=== PATIENT | male | born 1965 | race African-American/Black ===

== ENCOUNTER 2024-07-21 08:02 | Emergency (ER) | payer OTHER, SELFPAY ==
[2024-07-21 08:01] VITALS: BP 141/97; PULSE 99; RESP 22; TEMP 37; O2SAT 100
[2024-07-21 08:30] VITALS: BP 124/95; PULSE 95; RESP 16; O2SAT 100
[2024-07-21] MEDS: MORPHINE SULFATE (*CRX) 4 MG/ML INJ IV PUSH (08:43)
--- OUTSIDE RECORDS SUMMARY | 2024-07-21 08:46 | XMS_ITS | Clinical Summary ---
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 05/25/2024 11:47 AM ICING COATER us Stu Pringle MD PhD LAB BLOOD ORDERABLES Final Result ANGELA [address] [facility] [place] [address] * (ABNORMAL) CBC with auto differential (05/25/2024 11:47 AM ICING COATER) WBC 7.7 3.8 - 9.9 K/cumm Comment:Testing performed by : [address] [address] Hgb 12.5(L) 13.0 - 17.5 g/dL ANGELA Comment:Testing performed by : [address] [address] Hct 36.2(L) 38.9 - 50.3 % ANGELA Comment:Testing performed by : [address] [address] Plt 259 150 - 400 K/cumm ANGELA Comment:Testing performed by : [address] [address] MPV 9.2 9.1 - 12.3 fL ANGELA Comment:Testing performed by : [address], [address] RBC 4.37 4.30 - 5.80 M/cumm ANGELA Comment:Testing performed by : [address], [address] MCV 82.8 81.3 - 96.4 fL ANGELA Comment:Testing performed by : [address] [address] MCH 28.6 27.1 - 33.3 pg ANGELA Comment:Testing performed by : [address] [address] MCHC 34.5 32.3 - 35.7 g/dL ANGELA Comment:Testing performed by : [address], [address] RDW CV 14.4 11.1 - 14.9 % ANGELA Comment:Testing performed by : [address], [address] RDW SD 43.6 35.7 - 48.1 fL ANGELA Comment:Testing performed by : [address] [address] NRBC abs 0.00 0.00 - 0.01 K/cumm ANGELA Comment:Testing performed by : [address] [address] Blood 05/25/2024 11:4 7 AM ICING COATER 05/25/2024 11:47 AM ICING COATER us Stu Pringle MD PhD LAB BLOOD ORDERABLES Final Result [facility] [address] [facility] Department [place] [address] * Comprehensive metabolic panel (05/25/2024 11:47 AM ICING COATER) Sodium 137 135 - 145 mmol/L Comment:Testing performed by : [address] [address] Potassium, pl 3.9 3.3 - 4.9 mmol/L ANGELA Comment:Testing performed by : [address], [place]., [address] Chloride 101 97 - 110 mmol/L ANGELA Comment:Testing performed by : [address] [address] CO2 26 22 - 32 mmol/L ANGELA Comment:Testing performed by : [address] [address] Anion gap 10 2 - 15 mmol/L ANGELA Comment:Testing performed by : [address] [address] BUN 9 6 - 25 mg/dL ANGELA Comment:Testing performed by : [address] [address] Creatinine 0.80 0.80 - 1.30 mg/dL ANGELA Comment:Testing performed by : [address] [address] Glucose 86 70 - 199 mg/dL ANGELA Comment: Interpretive Data Fasting glucose >/= 126 mg/dl is diagnostic for diabetes. Fasting is defined as no caloric intake for at least 8 hours. Fasting glucose between 100 mg/dl to 125 mg/dl is diagnostic of prediabetes. In a patient with classic symptoms of hyperglycemia or hyperglycemic crisis, a random glucose >/= 200 mg/dl is diagnostic for diabetes. In the absence of unequivocal hyperglycemia, results should be confirmed by repeat testing. The classification and Diagnosis of Diabetes Diabetes Care 202; 46: S19-S40. Current interpretive data was last revised 2022. Testing performed by: [address] [address] Calcium 9.0 8.5 - 10.3 mg/dL ANGELA Comment:Testing performed by : [address] [address] Bilirubin, total 0.2 0.1 - 1.2 mg/dL ANGELA Comment:Testing performed by : [address] [address] Protein, pl 6.7 6.5 - 8.5 g/dL ANGELA Comment:Testing performed by : [address] [address] Albumin 3.5 3.5 - 5.0 g/dL ANGELA Comment:Testing performed by : [address], [address] Alk phos 88 40 - 130 Units/L ANGELA Comment:Testing performed by : [address] [address] ALT 7 7 - 55 Units/L ANGELA Comment:Testing performed by : [address] [address] AST 16 10 - 50 Units/L ANGELA Comment:Testing performed by : [address] [address] Blood 05/25/2024 11:4 7 AM ICING COATER 05/25/2024 11:47 AM ICING COATER us Stu Pringle MD PhD LAB BLOOD ORDERABLES Final Result Performing Organization Address City/State/[facility] Co de Phone Number ANGELA [address] [facility] [place] [address] * XR Chest 1 Vw - Portable (05/04/2024 1:21 PM ICING COATER) Anatomical Region Laterality Modality Body, Chest N/A Computed Radiogr aphy 05/04/2024 2:10 PM ICING COATER Narrative 05/04/2024 2:13 PM ICING COATER EXAM DESCRIPTION: XR CHEST 1 VIEW . REASON FOR STUDY: s/p left thoracentesis TECHNIQUE: Single anteroposterior image of the thorax. COMPARISON: None. FINDINGS: Known malignancy in the left lung. Status post left thoracentesis. No discernible left pneumothorax. IMPRESSION: No discernible left pneumothorax. Patient is without complaints and with normal vital signs. THIS IS AN ELECTRONICALLY VERIFIED FINAL REPORT 05/04/2024 2:13 PM - Electronically signed by Jaspreet Minaya M.D. SN T: Report ID: [id number] Reading Location: [id number] Procedure Note Jaspreet Minaya MD - 05/04/2024 EXAM DESCRIPTION: XR CHEST 1 VIEW . REASON FOR STUDY: s/p left thoracentesis TECHNIQUE: Single anteroposterior image of the thorax. COMPARISON: None. FINDINGS: Known malignancy in the left lung. Status post leftthoracentesis. No discernible left pneumothorax. IMPRESSION: No discernible left pneumothorax. Patient is withoutcomplaints and with normal vital signs. THIS IS AN ELECTRONICALLY VERIFIED FINAL REPORT 05/04/2024 2:13 PM - Electronically signed by Jaspreet Minaya M.D. SN T: Report ID: [id number] Reading Location: [id number] us Jaspreet Minaya MD IMG XR PROCEDURES Final Result * US Guided Thoracentesis (05/04/2024 12:27 PM ICING COATER) Anatomical Region Laterality Modality Chest N/A Ultrasound, Comp uted Radiography 05/04/2024 1:08 PM ICING COATER Narrative 05/04/2024 1:08 PM ICING COATER EXAM DESCRIPTION: US GUIDED THORACENTESIS . HISTORY: Left pleural effusion. COMPARISON: None. PROCEDURE: The alternatives to, the benefits of and the risks of the procedure were discussed with the patient, including the risk of pneumothorax. Informed written consent was obtained. The patient was placed in an upright position and the skin overlying the posterior hemithorax was prepped and draped in the usual sterile fashion. Local anesthesia was achieved with 2 cc of 1% lidocaine. Under sonographic guidance, a 5 Kazakh 7 cm One-Step catheter was inserted into the pleural space and 1.3 liters of yuq-ovovy-ylcsvql fluid were withdrawn. The patient tolerated the procedure well. There were no immediate complications. IMPRESSION: Successful sonographic guided left thoracentesis. THIS IS AN ELECTRONICALLY VERIFIED FINAL REPORT 05/04/2024 1:08 PM - Electronically signed by Jaspreet NORWOOD T: Report ID: [id number] Reading Location: [id number] Procedure Note Jaspreet Minaya MD - 05/04/2024 EXAM DESCRIPTION: US GUIDED THORACENTESIS . HISTORY: Left pleural effusion. COMPARISON: None. PROCEDURE: The alternatives to, the benefits of and the risks of theprocedure were discussed with the patient, including the risk of pneumothorax.Informed written consent was obtained. The patient was placed in an uprightposition and the skin overlying the posterior hemithorax was prepped and draped inthe usual sterile fashion. Local anesthesia was achieved with 2 cc of 1% lidocaine. Under sonographic guidance, a 5 Kazakh 7 cm One-Step catheterwas inserted into the pleural space and 1.3 liters of qvo-kltrl-okrhpco fluid were withdrawn. The patient tolerated the procedure well. There were no immediate complications. IMPRESSION: Successful sonographic guided left thoracentesis. THIS IS AN ELECTRONICALLY VERIFIED FINAL REPORT 05/04/2024 1:08 PM - Electronically signed by Jaspreet NORWOOD T: Report ID: [id number] Reading Location: [place] [address] us Stu Pringle MD PhD IMG US PROCEDURES Fin al Result * Cytology (05/04/2024 12:10 PM ICING COATER) Fluid (Pleura (Cytology)) 05/04/2024 12:10 PM ICING COATER Narrative PATHOLOGY [facility] - 05/07/2024 10:51 AM ICING COATER EPIC results best viewed via link to PDF [facility] [place] [address] Note to Patients: This report may contain a detailed description of human tissue sent by a health care provider to the laboratory for pathologic evaluation. The content of this report is essential for diagnosis and may provide important critical findings. This information may be unfamiliar to patients to review without a medical professional present. It is advised that the patient review this report in the presence of a health care provider who can answer questions and explain the details. CYTOPATHOLOGY REPORT FINAL Patient Name: TORRES GODINEZ Gender: M : 1965 (Age: 58) Address: [address] [place] [address] Hospital #: [id number] Taken:05/04/2024 Received:05/05/2024 Reported: 05/07/2024 Patient Type: B ANCILLARY Service: UNKNOWN Location: Physician(s): Jaspreet Minaya M.D. FINAL DIAGNOSIS A. Left pleural fluid: - Negative for malignancy Comments Immunohistochemistry (single antibody procedure with appropriate controls) was performed for further characterization on the cell block. The mesothelial cells have positive staining for calretinin, while TTF-1, MOC-31 and BerEP4 are negative, supporting the diagnosis. sucr/05/07/2024 10:51 By this signature, I attest that the above diagnosis is based upon my personal examination of the slides(and/or other material indicated in the diagnosis). Honey Fields M.D. Report Electronically Reviewed and Signed Out By Honey Fields M.D. 05/07/2024 10:51:02 Dejon Wellington [facility](ASCP) Gross Description A. Left pleural fluid: 1000 ml orange /demetrius fluid - 1 Pap stained ThinPrep, 1 Pap stained cytospin, 1 Diff-Quik stained cytospin, and cell block. (vo) Clinical Diagnosis and History The patient is a 58 year old male with malignant neoplasm of upper lobe of left lung. Microscopic slide review and interpretation for this case was performed at [facility], Department of Surgical Pathology, [address] [facility] [address], [id number], [place] [address] CLIA # [id number] REPORT IMAGES AND SCANNED DOCUMENTS, IF INCLUDED, ONLY VIEWABLE IN PDF VERSION OF REPORT The performance characteristics of some immunohistochemical stains, in-situ hybridization and fluorescence in-situ hybridization tests and immunophenotyping by flow cytometry cited in this report (if any) were determined by the Surgical Pathology and Flow Cytometry Departments at [facility] as part of an ongoing air quality specialist program and in compliance with federally mandated regulations drawn from the Clinical Laboratory Improvement Act of 1988 (CLIA '88). Some of these tests rely on the use of analyte specific reagents and are subject to specific labeling requirements by the US Food and Drug Administration. Such diagnostic tests may only be performed in a facility that is certified by the Department of Health and Human Services as a high complexity laboratory under CLIA '88. The FDA has determined that such clearance or approval is not necessary. This test is used for clinical purposes. It should not be regarded as investigational or for research. Nevertheless, federal rules concerning the medical use of analyte specific reagents require that the following disclaimer be attached to the report: This test was developed and its performance characteristics determined by the Surgical Pathology and Flow Cytometry Departments of [facility]. It has not been cleared or approved by the U. S. Food and Drug Administration. Stu Pringle MD PhD LAB CYTOLOGY ORDERABL ES Final Result [facility] * aPTT (04/27/2024 2:52 PM ICING COATER) aPTT 29 22 - 37 sec Comment: Interpretive data aPTT test has not been evaluated for monitoring heparin therapy. The anti-Xa is the preferred test. Current interpretive data was last revised on 2019. Testing performed by: [facility], [address] [place] [address]., [address] Blood 04/27/2024 2:52 PM ICING COATER 04/27/2024 4:21 PM ICING COATER Stu Pringle MD PhD LAB BLOOD ORDERABLES Final Result [facility] [address] [facility] Department [place] [address] * Protime-INR (04/27/2024 2:52 PM ICING COATER) PT 13.4 12.0 - 14.6 sec Comment:Testing performed by : [address] [address] INR 1.0 0.9 - 1.2 ANGELA YAN Comment: Ref Range High Interpretive data Oral anticoagulant therapeutic ranges: Venous thromboembolism prophylaxis or treatment: 2.0-3.0 CARDIOLOGY Standard range: 2.0-3.0 High-intensity range: 2.5-3.5 Refer to indication-specific guidelines for appropriate target ranges for prosthetic heart valve replacement. Current interpretive data was last revised on 2019. Testing performed by: [facility], [address] [place] [address]., [address] Blood 04/27/2024 2:52 PM ICING COATER 04/27/2024 4:21 PM ICING COATER Stu Pringle MD PhD LAB BLOOD ORDERABLES Final Result ANGELA [address] [facility] Department [place] [address] * eGFR (04/27/2024 1:05 PM ICING COATER) eGFR >90 >=60 mL/min/1. 73 m2 Comment: Interpretive Data Reference Interval Normal >/= 90 mL/min/1.73m2 Mildly decreased* 60 - 89 mL/min/1.73m2 Mildly to moderately decreased 45 - 59 mL/min/1.73m2 Moderately to severely decreased 30 - 44 mL/min/1.73m2 Severely decreased 15 - 29 mL/min/1.73m2 Kidney Failure < 15 mL/min/1.73m2 *Relative to young adult level Estimated glomerular filtration rate is determined by the 2020 CKD-EPI equation recommended by the National Kidney Foundation (A Unifying Approach to GFR Estimation: Recommendations of the NKF-ASK Task Force on Reassessing the Inclusion of Race in Diagnosing Kidney Disease, JASN 202). The CKD-EPI equation should not be used for patients with unstable renal function and has not been validated in children and those over 70. Current interpretive data was last reviewed 2021. Testing performed by: [address] [address] Blood 04/27/2024 1:05 PM ICING COATER 04/27/2024 1:07 PM ICING COATER Stu Pringle MD PhD LAB BLOOD ORDERABLES Final Result [facility] [address] [facility] [place] [address] * Differential, auto (04/27/2024 1:05 PM ICING COATER) Neutrophil abs 6.5 1.5 - 6.5 K/cumm Comment:Testing performed by : [address] [address] Imm gran abs 0.0 0.0 - 0.1 K/cumm ANGELA Comment:Testing performed by : [address] [address] Lymphocyte abs 1.0 0.8 - 3.3 K/cumm ANGELA Comment:Testing performed by : [address] [address] Monocyte abs 0.7 0.2 - 0.8 K/cumm ANGELA Comment:Testing performed by : [address] [address] Eosinophil abs 0.2 0.0 - 0.5 K/cumm ANGELA Comment:Testing performed by : [address] [address] Basophil abs 0.1 0.0 - 0.1 K/cumm ANGELA Comment:Testing performed by : [address] [address] Neutrophil pct 76.8 % [facility]A Comment: Interpretive Data Percent cell count reference ranges are not reported, since discordance with absolute values may lead to misinterpretation of CBC data. Current Interpretive Data was last revised on 2017. Testing performed by: [address] [address] Imm gran pct 0.5 % [facility] Comment: Interpretive Data Percent cell count reference ranges are not reported, since discordance with absolute values may lead to misinterpretation of CBC data. Current Interpretive Data was last revised on 2017. Testing performed by: [address] [address] Lymphocyte pct 11.8 % [facility] Comment: Interpretive Data Percent cell count reference ranges are not reported, since discordance with absolute values may lead to misinterpretation of CBC data. Current Interpretive Data was last revised on 2017. Testing performed by: [address] [address] Monocyte pct 8.3 % [facility] Comment: Interpretive Data Percent cell count reference ranges are not reported, since discordance with absolute values may lead to misinterpretation of CBC data. Current Interpretive Data was last revised on 2017. Testing performed by: [address] [address] Eosinophil pct 2.0 % [facility] Comment: Interpretive Data Percent cell count reference ranges are not reported, since discordance with absolute values may lead to misinterpretation of CBC data. Current Interpretive Data was last revised on 2017. Testing performed by: [address] [address] Basophil pct 0.6 % [facility] Comment: Interpretive Data Percent cell count reference ranges are not reported, since discordance with absolute values may lead to misinterpretation of CBC data. Current Interpretive Data was last revised on 2017. Testing performed by: [address] [address] Blood 04/27/2024 1:05 PM ICING COATER 04/27/2024 1:07 PM ICING COATER us Stu Pringle MD PhD LAB BLOOD ORDERABLES Final Result ANGELA YAN [address] [facility] Department [place] [address] * CBC with auto differential (04/27/2024 1:05 PM ICING COATER) WBC 8.5 3.8 - 9.9 K/cumm Comment:Testing performed by : [address] [address] Hgb 15.7 13.0 - 17.5 g/dL ANGELA Comment:Testing performed by : [address] [address] Hct 44.8 38.9 - 50.3 % ANGELA Comment:Testing performed by : [address] [address] Plt 265 150 - 400 K/cumm ANGELA Comment:Testing performed by : [address] [address] MPV 10.3 9.1 - 12.3 fL ANGELA Comment:Testing performed by : [address] [address] RBC 5.35 4.30 - 5.80 M/cumm ANGELA Comment:Testing performed by : [address] [address] MCV 83.7 81.3 - 96.4 fL ANGELA Comment:Testing performed by : [address] [address] MCH 29.3 27.1 - 33.3 pg ANGELA Comment:Testing performed by : [address] [address] MCHC 35.0 32.3 - 35.7 g/dL ANGELA Comment:Testing performed by : [address] [address] RDW CV 14.8 11.1 - 14.9 % ANGELA Comment:Testing performed by : [address] [address] RDW SD 45.1 35.7 - 48.1 fL ANGELA Comment:Testing performed by : [address] [address] NRBC abs 0.00 0.00 - 0.01 K/cumm ANGELA Comment:Testing performed by : [address], [address] Blood 04/27/2024 1:05 PM ICING COATER 04/27/2024 1:07 PM ICING COATER us Stu Pringle MD PhD LAB BLOOD ORDERABLES Final Result ANGELA [address] [facility] Department [place] [address] * Comprehensive metabolic panel (04/27/2024 1:05 PM ICING COATER) Sodium 138 135 - 145 mmol/L Comment:Testing performed by : [address] [address] Potassium, pl 3.4 3.3 - 4.9 mmol/L ANGELA Comment:Testing performed by : [address] [address] Chloride 100 97 - 110 mmol/L ANGELA Comment:Testing performed by : [address] [address] CO2 26 22 - 32 mmol/L ANGELA Comment:Testing performed by : [address] [address] Anion gap 12 2 - 15 mmol/L ANGELA Comment:Testing performed by : [address] [address] BUN 8 6 - 25 mg/dL ANGELA Comment:Testing performed by : [address] [address] Creatinine 0.90 0.80 - 1.30 mg/dL ANGELA Comment:Testing performed by : [address] [address] Glucose 160 70 - 199 mg/dL ANGELA Comment: Interpretive Data Fasting glucose >/= 126 mg/dl is diagnostic for diabetes. Fasting is defined as no caloric intake for at least 8 hours. Fasting glucose between 100 mg/dl to 125 mg/dl is diagnostic of prediabetes. In a patient with classic symptoms of hyperglycemia or hyperglycemic crisis, a random glucose >/= 200 mg/dl is diagnostic for diabetes. In the absence of unequivocal hyperglycemia, results should be confirmed by repeat testing. The classification and Diagnosis of Diabetes Diabetes Care 2021; 46: S19-S40. Current interpretive data was last revised 2022. Testing performed by: [facility], [address] [place] [address]., [address] Calcium 9.3 8.5 - 10.3 mg/dL ANGELA Comment:Testing performed by : [address] [address] Bilirubin, total 0.3 0.1 - 1.2 mg/dL ANGELA Comment:Testing performed by : [address] [address] Protein, pl 7.3 6.5 - 8.5 g/dL ANGELA Comment:Testing performed by : [address] [address] Albumin 4.0 3.5 - 5.0 g/dL ANGELA Comment:Testing performed by : [address] [address] Alk phos 109 40 - 130 Units/L ANGELA Comment:Testing performed by : [address] [address] ALT 10 7 - 55 Units/L ANGELA Comment:Testing performed by : [address] [address] AST 18 10 - 50 Units/L ANGELA Comment:Testing performed by : [address] [address] Blood 04/27/2024 1:05 PM ICING COATER 04/27/2024 1:07 PM ICING COATER us Stu Pringle MD PhD LAB BLOOD ORDERABLES Final Result ANGELA [address] [facility] Department of Laboratories [place], [place] [id number] from Last 3 Months Insurance [facility] Advance Directives For more information, please contact: [phone] * Full Code (Latest Code Status on File) Date Activated Date Inactivated Comments 05/04/2024 12:50 PM 05/05/2024 5:23 AM * Full Code Date Activated Date Inactivated Comments 01/16/2022 11:50 AM 01/17/2022 5:21 AM Care Teams Deputy Juvenile Officer Relationship Specialty Start Date End Date Sparkle Brandon MD PCP - General 07/21/18 Stu Pringle MD PhD [address] [place] [address] MEDICAL ONCOLOGY, [place] [address] Consulting Physician Medical Oncology 03/13/22 [place] [address] [place] [address] JAVIER LEONE [address] Radiation Oncologist Radiation Oncology 04/26/24
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
--- OUTSIDE RECORDS SUMMARY | 2024-07-21 08:46 | XMS_ITS | Referral Summary ---
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 - 1.30 mg/dL [facility] Comment:Testing performed by : [address] [address] Glucose 160 70 - 199 mg/dL [facility] Comment: Interpretive Data Fasting glucose >/= 126 [...] was last revised 2022. Testing performed by: [address] [address] Calcium 9.3 8.5 - 10.3 mg/dL [facility] Comment:Testing performed by : [address] [address] Bilirubin, total 0.3 0.1 - 1.2 mg/dL [facility] Comment:Testing performed by : [address] [address] Protein, pl 7.3 6.5 - 8.5 g/dL [facility] Comment:Testing performed by : [address] [address] Albumin 4.0 3.5 - 5.0 g/dL [facility] Comment:Testing performed by : [address] [address] Alk phos 109 40 - 130 Units/L ANGELA YAN Comment:Testing performed by : [facility], [address] [place] [address]., [address] ALT 10 7 - 55 Units/L ANGELA YAN Comment:Testing performed by : [facility], [address] [place] [address]., [address] AST 18 10 - 50 Units/L ANGELA YAN Comment:Testing performed by : [address] [address] Blood 04/27/2024 1:05 PM 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 04/27/2024 1:07 PM 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 us Stu Pringle MD PhD LAB BLOOD ORDERABLES Final Result ANGELA [address] [facility] [place] [address] from Last 3 Months Insurance [facility] Advance Directives For more information, please contact: [phone] * Full Code (Latest Code Status on File) Date Activated Date Inactivated Comments 05/04/2024 12:50 PM 05/05/2024 5:23 AM * Full Code Date Activated Date Inactivated Comments 01/16/2022 11:50 AM 01/17/2022 5:21 AM 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
--- OUTSIDE RECORDS SUMMARY | 2024-07-21 08:46 | XMS_ITS | Continuity of Care Document ---
Author Organization [facility] Address [address] [place] [address] [place] [address] Phone Care Team Providers Care Blocker Polishing Name Role Phone Doni Murrell MD Unavailable Unavailable Allergies, Adverse Reactions, Alerts Substance Reaction Status Criticality lisinopril Active No Information Medications Medication Instructions Dosage Effective Dates (start - stop) Status Comments Tylenol-Codeine #3 300 mg-30 mg tablet take 1 tablet by oral route 2 times every day as needed 1 tablet - Active avoid drivin g or opeate machines losartan 50 mg tablet take 1 tablet (50MG) by oral route every day 50 MG - Active Norvasc 10 mg tablet take 1 tablet (10MG) by oral route every day 10 MG - Active Procedures Procedure Date OFFICE/OUTPATIENT VISIT, EST OFFICE/OUTPATIENT VISIT, EST PREV VISIT, NEW, AGE 40-64 Advance Directives Directive Yes / No Effective Date File Name No Information Encounters Encounter Description Practice Location Reason(s) For Visit Diagnoses Date Provider Providers Copied on Encounter OFFICE/OUTPA TIENT VISIT, EST [facility], [address] [place], [id number], [place] tel:[phone] [facility] Medicine Hep B (chief complaint) Anemia (chief complaint) Vitamin D (chief complaint) back pain (chief complaint) Chronic hepatitis, unspecifiedLumbagoO ther specified anemiasUnspecified vitamin d deficiency [address]. [address] [facility] [place], [place], [id number] , [place]. tel:[phone] Referring Provider: Doni Murrell, [address] [facility] [address], [place], [place], [id number]. tel:[phone] OFFICE/OUTPA TIENT VISIT, EST [facility], [address] [place], [id number], tel:[phone] [facility] Medicine hTN (chief complaint) back pain (chief complaint) Hypertension, UnspecifiedLumbagoO ther disorders of coccyx [address]. [address] [place], [place], [id number] , [place]. tel:[phone] Referring Provider: Doni Murrell, [address] [facility] [address], [place], [place], [id number]. tel:[phone] PREV VISIT, NEW, AGE 40-64 [facility], [address] [place], [place], [address], tel:[phone] [facility] Medicine Physical (chief complaint) Routine Medical ExamRoutine Medical Exam [address] [place], [place], [address] , [place]. tel:[phone] Family History Family Member Type Diagnosis Age At Onset Problem (finding) Family history of Coronary artery disease 65 Mother Problem (finding) Diabetes mellitus Father Problem (finding) Hypertension Brother Problem (finding) Diabetes mellitus Payers Payer name Insurance type Covered republican ID Authoriza tion(s) No Information Social History Type Description Quantity Date Captured Comments Alcohol Use Details 4 beers daily Caffeine Use Details Unknown Tobacco Use Status No Information Smoking Status Current every day smoker 2013 Sex Male Vital Signs Date / Time: Height Weight BMI Pulse Rate Blood Pressure Temperature Respiratory Rate Body Surface Area Head Circumference BMI percentile Pulse Ox Inhaled Ox 9:18 AM 71.00 in 133.00 lbs 18.5 5 kg/m eter (2) 68 /min 135/99 mm[Hg] 97.8 F 16 /min Chief Complaint And Reason For Visit From encounter dated '12/17/2013 08:30'. Hep B (chief complaint) Anemia (chief complaint) Vitamin D (chief complaint) back pain (chief complaint) Plan Of Treatment Date Type Action Status Goal Tobacco cessation counseling completed Goal Tobacco cessation counseling completed Goal Tobacco cessation counseling completed Referral Ordered: Gastroentergy (related to Chronic hepatitis, unspecified) ordered Referral Ordered: Referral: Gastroentergy. ordered Referral Ordered: US EXAM, ABDOM, COMPLETE ordered Referral Ordered: SACRUM/COCCYX XRAY ordered Referral Ordered: CHEST X-RAY PA/LAT TWO-VIEWS ordered History Of Present Illness Encounter Date Complaint History Of Prese nt Illness No Information Instructions Date Instruction Additional Infor mation No Information Assessments Type Assessment Date No Information Mental Status Date Cognitive Assessment Orientation - [place] ed to time, place, person, situation.
--- OUTSIDE RECORDS SUMMARY | 2024-07-21 08:46 | XMS_ITS | CONTINUITY OF CARE DOCUMENT ---
Author Name zachariah soni Address Unknown Organization [facility] Address [address] [address] [facility] [address] [place] [address] Phone [phone] Care Team Providers Care Email Operations Manager Name Role Phone Derian WHITESIDE, Bronson Unavailable Bronson Menard MD Unavailable [phone] INSURANCE PROVIDERS Payer name Policy type / Coverage type [place] red republican ID JALEN MEDICAID (2) Medicaid [id number]
[2024-07-21 08:58] LABS: Basophils Absolute Auto 0.1 K/mm3 (0.0-0.1); Basophils Percent Auto 0.4 % (0.2-1.2); Eosinophils Absolute Auto 0.1 K/mm3 (0-0.3); Eosinophils Percent Auto 0.8 % (0-4.4); Hemoglobin 12.7 g/dL (14.0-18.0); Immature Granulocyte Absolute 0.06 K/mm3 (0.00-0.031); Immature Granulocyte Percent A 0.5 % (0-0.5); Lymphocytes Absolute Auto 0.72 K/mm3 (0.9-3.2); Lymphocytes Percent Auto 5.6 % (18.3-44.2); Mean Corpuscular HGB Conc 33.4 g/dl (32-36); Mean Corpuscular Hemoglobin 29.8 pg (26-34); Mean Corpuscular Volume 89.2 fl (80-100); Mean Platelet Volume 10.5 fl (7.4-10.4); Monocytes Absolute Auto 0.9 K/mm3 (0.1-0.6); Monocytes Percent Auto 6.9 % (2.6-8.5); Neutrophils Absolute Auto 11.1 K/mm3 (1.3-6.7); Neutrophils Percent Auto 85.8 % (45.5-73.1); Platelet Count Result 204 k/mm3 (150-375); Red Blood Count 4.26 M/mm3 (4.6-6.20); Red Cell Distribution Width 16.9 % (11.5-14.5); White Blood Count 12.9 K/mm3 (4.5-10.0)
[2024-07-21 09:16] LABS: Alanine Aminotransferase 15 U/L (6-50); Albumin Level 3.5 g/dL (3.5-5.1); Alkaline Phosphatase 125 U/L (38-126); Anion Gap 4 mmol/L (4-12); Aspartate Amino Transferase 22 U/L (17-59); Bilirubin,Total 0.4 mg/dL (0.2-1.3); Blood Urea Nitrogen 18 mg/dL (9-20); Calcium 9.1 mg/dL (8.4-10.2); Carbon Dioxide 32 mmol/L (22-30); Chloride 101 mmol/L (98-107); Estimated CRCL calculation 73 ml/min; Estimated Glomerular Filt Rate > 60; Glucose 133 mg/dL (65-110); Potassium 3.6 mmol/L (3.4-5.0); Sodium 137 mmol/L (137-145)
[2024-07-21 09:45] VITALS: BP 132/98; PULSE 82; RESP 16; O2SAT 100
--- NOTE | 2024-07-21 10:10 | ED.GENADULT ---
HPI - General Adult General Chief complaint: Skin/Abscess/Foreign Body Stated complaint: headache-shingles Time Seen by Provider: 07/21/24 08:12 History of Present Illness HPI narrative: Patient 58-year-old gentleman presents emergency department with chief complaint of pain from shingles. The patient reports he was seen at [place] treated with antivirals and has been treated for posttraumatic neuralgia the patient lost his oxycodone and reports that he went back to [place] they did give him some tramadol and reports that he continues to have severe pain the patient is on gabapentin as well the patient reports no fever reports no visual changes reports that it hurts from his eyelid up into his scalp the patient reports that he has healing lesions and currently does not have any active blisters Related Data Home Medications ?Medication ?Instructions ?Recorded ?Confirmed ?Last Taken ?Type gabapentin 300 mg capsule mg 07/21/24 Unknown History naproxen 500 mg tablet mg 07/21/24 Unknown History tramadol 50 mg tablet mg 07/21/24 Unknown History Allergies Allergy/AdvReac Type Severity Reaction Status Date / Time lisinopril Allergy Swelling Verified 07/21/24 08:24 of Lip/Tongue/Throat Review of Systems Review of Systems: A 10 system review of systems was completed on the patient and is negative except for what is stated in the HPI. Nursing and ancillary documentation was reviewed. Exam Narrative: GENERAL: Well-appearing, well-nourished, and in no acute distress. HEAD: Normocephalic, atraumatic. EYES: PERRLA and EOMI. ENT: Nares clear, no rhinorrhea or epistaxis. Mucous membranes moist. NECK: Supple. CHEST: Clear to auscultation. No respiratory distress. HEART: Regular rate and rhythm. No murmur heard. Normal peripheral pulses. ABDOMEN: Soft, nontender, nondistended, normal active bowel sounds. EXTREMITIES: Normal range of motion. No edema. SKIN: Warm, dry, there is a healing zoster form rash present on the right forehead. NEURO: No focal deficits. Alert and oriented x3. PSYCH: Normal mood and affect. Course Vital Signs Vital signs: Vital Signs Temperature 37.0 C 07/21/24 08:01 Pulse Rate 99 07/21/24 08:01 Respiratory Rate 22 H 07/21/24 08:01 Blood Pressure 141/97 H 07/21/24 08:01 Pulse Oximetry 100 04/16/25 08:01 Oxygen Delivery Room Air 07/21/24 08:01 Temperature 37.0 C 07/21/24 08:01 Pulse Rate 99 07/21/24 08:01 Respiratory Rate 22 H 07/21/24 08:01 Blood Pressure 141/97 H 07/21/24 08:01 Pulse Oximetry 100 07/21/24 08:01 Oxygen Delivery Room Air 07/21/24 08:01 Medical Decision Making [facility] Narrative Medical decision making narrative: Patient shows zoster that is in the healing phase patient at this time 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 the patient is on gabapentin the patient will be given a short course of opiates and will be instructed to follow-up with his primary care provider the patient was educated to the fact that post hepatic neuralgia can be exquisitely painful and can linger for an extended period of time Vital Signs Vital Signs: Vital Signs Temperature 37.0 C 07/21/24 08:01 Pulse Rate 99 07/21/24 08:01 Respiratory Rate 22 H 07/21/24 08:01 Blood Pressure 141/97 H 07/21/24 08:01 Pulse Oximetry 100 07/21/24 08:01 Oxygen Delivery Room Air 07/21/24 08:01 Temperature 37.0 C 07/21/24 08:01 Pulse Rate 99 07/21/24 08:01 Respiratory Rate 22 H 07/21/24 08:01 Blood Pressure 141/97 H 07/21/24 08:01 Pulse Oximetry 100 07/21/24 08:01 Oxygen Delivery Room Air 07/21/24 08:01 Lab Data 07/21/24 08:50 07/21/24 08:50 Labs: Lab Results 07/21/24 Range/Units 08:50 WBC 12.9 H (4.5-10.0) K/mm3 RBC 4.26 L (4.6-6.20) M/mm3 Hgb 12.7 L (14.0-18.0) g/dL Hct 38.0 L (42.0-52.0) % MCV 89.2 (80-100) fl MCH 29.8 (26-34) pg MCHC 33.4 (32-36) g/dl RDW 16.9 H (11.5-14.5) % Plt Count 204 (150-375) k/mm3 MPV 10.5 H (7.4-10.4) fl Immature Gran % (Auto) 0.5 (0-0.5) % Neut % (Auto) 85.8 H (45.5-73.1) % Lymph % (Auto) 5.6 L (18.3-44.2) % [place] % (Auto) 6.9 (2.6-8.5) % Eos % (Auto) 0.8 (0-4.4) % Baso % (Auto) 0.4 (0.2-1.2) % Lymph # (Auto) 0.72 L (0.9-3.2) K/mm3 [place] # (Auto) 0.9 H (0.1-0.6) K/mm3 Eos # (Auto) 0.1 (0-0.3) K/mm3 Baso # (Auto) 0.1 (0.0-0.1) K/mm3 Abs Immat Gran (auto) 0.06 H (0.00-0.031) K/mm3 Absolute Neuts (auto) 11.1 H (1.3-6.7) K/mm3 Absolute Nucleated RBC 0.000 (0.0-0.012) K/mm3 Nucleated RBC % 0.0 (0.0-0.2) % Sodium 137 (137-145) mmol/L Potassium 3.6 (3.4-5.0) mmol/L Chloride 101 (98-107) mmol/L Carbon Dioxide 32 H (22-30) mmol/L Anion Gap 4 (4-12) mmol/L BUN 18 (9-20) mg/dL Creatinine 0.89 (0.7-1.3) mg/dL Estim Creat Clear Calc 73 ml/min Estimated GFR > 60 (59 - ) Glucose 133 H (65-110) mg/dL Calcium 9.1 (8.4-10.2) mg/dL Total Bilirubin 0.4 (0.2-1.3) mg/dL AST 22 (17-59) U/L ALT 15 (6-50) U/L Alkaline Phosphatase 125 (38-126) U/L Total Protein 7.0 (6.3-8.2) g/dL Albumin 3.5 (3.5-5.1) g/dL Discharge Plan Discharge Clinical Impression: Neuralgia, post-herpetic Patient Disposition: Home Condition: Stable Instructions: Antibiotic Form, Shingles (ED) Patient Language: Estonian Prescriptions: New hydrocodone-acetaminophen 5-325 mg tablet 1 tablet PO Q6H PRN (Reason: pain) 3 Days Qty: 12 0RF No Action tramadol 50 mg tablet gabapentin 300 mg capsule naproxen 500 mg tablet Follow-up/Referrals: Kriss,Kimberley Rivera MD [Primary Care Provider] - Time of Disposition: 10:16
[2024-07-21 10:23] VITALS: BP 149/100; PULSE 105; RESP 18; O2SAT 99
== END 2024-07-21 10:35 | disposition home or self-care (01) ==
PROVIDERS: Emergency Provider Emergency Medicine; PCP Internal Medicine
DX: B02.29 Other postherpetic nervous system involvement (principal)
CPT/HCPCS: 36415; 80053; 85025; 96374; 99284; J2270